=== PATIENT | female | born 1995 | race Caucasian/White ===

== ENCOUNTER 2016-12-01 22:46 | Emergency (ER) | payer MEDICAID, OTHER ==
[~2016-12-01] VITALS: Ht 157.5 cm; Wt 52.0 kg
[~2016-12-01 22:46] MED LIST: DENIES MEDS
[2016-12-01 22:58] VITALS: Ht 157.5 cm; Wt 52.0 kg
--- NOTE | 2016-12-02 00:23 | ERD ---
ER Documentation Chief Complaint Date/Time DATE: 12/02/16 TIME: 00:20 Chief Complaint vaginal discharge for 8 months HPI Pleasant 21-year-old female presents to emergency department with reports of vaginal discharge 8 months. Patient reports that she has been seen and treated at her clinic by her seed cleaning manager she has been treated with Diflucan, MetroGel, she also reports urinary tract infection that she was treated for. Patient states that symptoms continue to be symptomatic. Patient reports that she has white vaginal discharge in the morning as the day progressed she develops copious discharge that has a cheesy smell. Patient reports dysuria and cloudy urine. Patient states that she was sexually active up until 2 months ago. Was taking oral contraceptive pills stopped taking pills 6 months ago. Patient is concerned that the infection is not being treated appropriately by her seed cleaning manager and has come for treatment. Patient denies pelvic pain, back pain, nausea, vomiting. Patient denies risky sexual behavior. States that symptoms started when she used a vaginal soap. ROS All systems reviewed and are negative except as per history of present illness. Medications Home Meds Reported Medications [Denies Meds] No Conflict Check 07/02/10 Allergies Allergies: Coded Allergies: No Known Allergy (Verified Allergy, Unknown, 07/02/10) PMhx/Soc Medical and Surgical Hx: pt denies Surgical Hx History of Surgery: No Anesthesia Reaction: No Hx Neurological Disorder: No Hx Respiratory Disorders: No Hx Cardiac Disorders: No Hx Psychiatric Problems: No Hx Miscellaneous Medical Probl: No (anemia) Hx Alcohol Use: No Hx Substance Use: No Hx Tobacco Use: No Smoking Status: Never smoker Physical Exam Vitals Vital Signs Date Time Temp Pulse Resp B/P Pulse Ox O2 Delivery O2 Flow Rate FiO2 12/01/16 22:58 98.3 90 16 136/99 100 Physical Exam Const: No acute distress Head: Atraumatic Eyes: Normal Conjunctiva ENT: Normal External Ears, Nose and Mouth. Neck: Full range of motion..~ No meningismus. Resp: Clear to auscultation bilaterally Cardio: Regular rate and rhythm, no murmurs Pelvic Exam: Cad Operator present Abdomen: Nontender External Genitalia: Normal Skin Speculum: Copious white firm clustered discharge mixed with mucus. Bimanual: No adnexal masses or tenderness, No CMT Skin: Back: No midline or flank tenderness Ext: Neur: Awake and alert Psych: Normal Mood and Affect Results 24 hrs Laboratory Tests Test 12/02/16 00:49 Urine Color LT. YELLOW Urine Clarity CLEAR Urine pH 6.0 Urine Specific [place] <=1.005 Urine Ketones NEGATIVE Urine Nitrite NEGATIVE Urine Bilirubin NEGATIVE Urine Urobilinogen 0.2 E.U./dL Urine Leukocyte Esterase NEGATIVE Urine Microscopic RBC 0-2/HPF Urine Microscopic WBC 0-2/HPF Urine Squamous Epithelial Cells OCCASIONAL Urine Bacteria OCCASIONAL Urine Hemoglobin TRACE Urine Glucose NEGATIVE% Urine Total Protein NEGATIVE Procedures/MDM This 21-year-old female coming in to emergency department for evaluation of vaginal discharge 8 months intermittently. Patient has been seen and treated by seed cleaning manager numerous times for vaginal yeast infection, bacterial vaginitis , and urinary tract infection symptoms continue to return. Patient reports that she has copious discharge daily that smells strongly of cheese. She is frustrated and tired of having an odor. She is not sexually active been celibate 2 months, on no oral control pills. Denies history of diabetes or any immunosuppression. Pelvic exam confirms patient's report, copious clumpy firm white vaginal discharge with mucus. Cultures obtained. I feel patient can be treated for vaginal candidiasis with fluconazole 150 mg by mouth , repeat day 3, repeat again day 6. I feel patient is a candidate to continue treatment with seed cleaning manager, and outpatient setting., I feel the patient is stable for discharge at this time. I have discussed results, examination findings, the treatment plan with the patient and family present prior to discharge. Indications for emergent reevaluation, side effects of medication were also discussed. All questions were answered. Patient verbalizes understanding and agrees with plan of care. Departure Diagnosis: Primary Impression: Vulvovaginitis due to yeast Condition: Good Patient Instructions: Vaginal Infection: Yeast (Candidiasis) Additional Instructions: Thank you for for coming to [facility] for your care today. Please ask your nurse or provider if you have questions about your care today and do not leave until all your questions have been answered. Please use any medications given as directed and follow-up with your doctor (or the doctor you were referred to) in the next 2-3 days. If you do not have a primary care doctor you may follow up at the [facility] (listed below). You may also use motrin and tylenol as needed for fever and/or pain unless instructed otherwise by your provider or nurse. Indications for more urgent follow-up have been discussed, but you may return to the Emergency Department at ANY time for any worrisome or worsening symptoms. If you have abdominal pain, please know that no test or exam you received is perfect and you should follow up within 8 hours for continued pain. If you had any imaging studies today, such as an X-Ray or CT Scan, these studies will be reviewed later by a radiologist. You will be called if there are important findings that were not identified today, so make sure the contact information you provided at registration is correct. If you received any narcotic pain control medicine today, such as Vicodin, Morphine or Dilaudid, your coordination and judgment may be affected for a number of hours. Please do not drive or operate heavy machinery, and you may want someone to assist you at home. If you were given a prescription for narcotic medication, be aware that it is very addictive- use sparingly and only if necessary. MAN LARIOS Dec 02, 2016 00:23
[2016-12-02 01:12] LABS: ADD UMIC YES; URINE BILIRUBIN (Dip) NEGATIVE (NEGATIVE); URINE BLOOD (Dip) TRACE (NEGATIVE); URINE COLOR LT. YELLOW (YELLOW); URINE GLUCOSE (Dip) NEGATIVE (NEGATIVE); URINE KETONES (Dip) NEGATIVE (NEGATIVE); URINE LEUKOCYTE ESTERASE (Dip) NEGATIVE (NEGATIVE); URINE NITRITE (Dip) NEGATIVE (NEGATIVE); URINE TOTAL PROTEIN (Dip) NEGATIVE (NEGATIVE); URINE UROBILINOGEN (Dip) 0.2 E.U./dL (0.1-1.0)
[2016-12-02 01:30] LABS: BACTERIA,URINE OCCASIONAL; SQUAMOUS EPITHELIAL CELL,UR OCCASIONAL; URINE RBCS 0-2 /HPF (0)
[2016-12-02] MEDS ORDERED: FLUC150T17 PO (01:57)
[2016-12-02] MEDS ORDERED: LACTINEX PO (02:26)
== END 2016-12-02 02:21 | disposition home or self-care (01) ==
LOC: FTE 22:46
DX: B37.3 Candidiasis of vulva and vagina (principal)
CPT/HCPCS: 81001; 87081; 87210; 87591; Z7502; 81003; 99284